=== PATIENT | female | born 1975 | race Caucasian/White ===

== ENCOUNTER 2021-02-05 22:08 | Emergency (ER) | payer BC ==
[~2021-02-05] VITALS: Ht 170.2 cm; Wt 60.8 kg
--- NOTE | 2021-02-05 22:54 | NUR ---
PT TAKEN DOWN FOR [facility].
[2021-02-05 23:05] LABS: MEAN CORPUSCULAR HEMOGLOBIN 31.5 uug (24.7-32.8); MEAN CORPUSCULAR VOLUME 92.7 fL (75.5-95.3); PLATELET COUNT (AUTO) 265 K/uL (179-408)
--- NOTE | 2021-02-05 23:10 | NUR ---
PT RETURNED FROM [facility]
[2021-02-05 23:14] LABS: MAGNESIUM 2.3 mg/dL (1.8-2.4); PHOSPHOROUS 3.9 mg/dL (2.5-4.9)
[2021-02-05 23:19] LABS: CREATININE 0.8 mg/dL (0.6-1.3); POTASSIUM 3.6 mmol/L (3.5-5.1)
[2021-02-05 23:24] LABS: BILIRUBIN,DIRECT 0.1 mg/dL (0.0-0.2); BILIRUBIN,TOTAL 0.5 mg/dL (0.2-1.0); TOTAL PROTEIN, SERUM 7.4 g/dL (6.4-8.2)
[2021-02-05] MEDS ORDERED: ASPI81TA31 PO (23:47)
--- NOTE | 2021-02-05 23:53 | NUR ---
Patient does not wish to proceed with medical care recommended by Dr. Jose. Patient given information related to possible complications, up to and including , which could occur as a result of leaving the hospital at this time. Patient verbalizes understanding of risks involved due to leaving against medical advice. Patient has signed AMA form. Noted to be calm, denies any pain/discomfort. Picked up by .
[2021-02-05 23:54] VITALS: BP 116/70
== END 2021-02-05 23:55 | disposition left against medical advice (07) ==
LOC: ER 22:10
DX: F41.0 Panic disorder [episodic paroxysmal anxiety] (principal); R07.2 Precordial pain; R20.0 Anesthesia of skin
CPT/HCPCS: 36415; 70030-TC; 71046; 83735; 84100; 85025; 93005; A4663